=== PATIENT | female | born 1955 | race American Indian/Alaskan Native ===

== ENCOUNTER 2019-05-18 06:40 | Day surgery (SDC) | payer BC ==
[2019-05-18 07:33] LABS: Basophils # (Auto) 0.1 K/mm3 (0.0-0.1); Basophils % (Auto) 1.2 % (0.0-1.8); Eosinophils # (Auto) 0.1 K/mm3 (0.0-0.4); Eosinophils % (Auto) 1.4 % (0.0-4.3); Hematocrit 36.3 % (30.3-42.9); Lymphocytes # (Auto) 1.3 K/mm3 (1.2-5.4); Lymphocytes % (Auto) 30.6 % (13.4-35.0); Mean Corpuscular HGB Conc 33 % (30-34); Mean Corpuscular Volume 94 fl (79-97); Monocytes # (Auto) 0.4 K/mm3 (0.0-0.8); Monocytes % (Auto) 9.7 % (0.0-7.3); Platelet Count 175 K/mm3 (140-440); Red Blood Count 3.87 M/mm3 (3.65-5.03); Red Cell Distribution Width 14.4 % (13.2-15.2)
[2019-05-18 07:41] LABS: INR 0.91 (0.87-1.13)
[2019-05-18 07:42] LABS: Partial Thromboplastin Time 27.1 Sec. (24.2-36.6)
[2019-05-18 07:46] LABS: BUN/Creatinine Ratio 16; Blood Urea Nitrogen 13 mg/dL (7-17); Calcium 9.1 mg/dL (8.4-10.2); Hemolysis Index 4
[2019-05-18] MEDS ORDERED: XYLOCAINE 2% INFILTRATI ONE (08:16)
[2019-05-18] MEDS ORDERED: HEPARIN/NS 5000 UNIT/500ML(CATH LAB) 1,000 ML IR ONE (08:16)
[2019-05-18] MEDS ORDERED: VERSED ONE (08:17)
[2019-05-18] MEDS ORDERED: SUBLIMAZE ONE (08:17)
[2019-05-18] MEDS: NACL 0.9% 500 ML 500 ML IV SCH ×2 (08:25→08:50)
[2019-05-18] MEDS ORDERED: HEPARIN 10,000 UNITS/10 ML ONE (08:50)
--- NOTE | 2019-05-18 10:22 | Short Stay Summary ---
Short Stay Documentation Date of service: 05/18/19 Narrative H&P: See H&P - History H&P: obtained from office - Allergies and Medications Current Medications: Allergies Penicillins Allergy (Verified 11/18/14 10:34) Rash Home Medications Medication Instructions Recorded Confirmed Last Taken Type Valacyclovir HCl [valACYclovir] 500 mg PO DAILY 11/19/14 05/18/19 05/17/19 History predniSONE [Prednisone] 5 mg PO DAILY 11/19/14 05/18/19 05/18/19 History Bisoprolol/Hydrochlorothiazide 1 tab PO QDAY 01/15/16 01/16/16 05/17/19 History [Bisoprolol-Hctz 5-6.25 mg Tab] Rivaroxaban [Xarelto] 20 mg PO QDAY 01/15/16 05/18/19 05/16/19 History Betaxolol HCl [Betoptic S 0.25% 1 drop OU DAILY 05/18/19 05/18/19 05/17/19 History SUSP] Folic Acid [Folvite] 1 mg PO DAILY 05/18/19 05/18/19 05/17/19 History Pravastatin [Pravachol] 40 mg PO QHS 05/18/19 05/18/19 05/17/19 History metHOTREXate(DOSE WEEKLY ONLY) 2.5 mg PO QWEEK 05/18/19 05/18/19 05/17/19 History [metHOTREXate (DOSE WEEKLY ONLY)] Active Medications Sodium Chloride (Nacl 0.9% 500 Ml) 500 mls @ 50 mls/hr IV DIRECT JACOB Last Admin: 05/18/19 08:50 Dose: 50 mls/hr Documented by: Rivaroxaban (Xarelto) 20 mg PO ONCE ONE; Protocol Stop: 05/18/19 10:15 - Brief post op/procedure progress note Date of procedure: 05/18/19 Pre-op diagnosis: R/O Mesenteric Ischemia Post-op diagnosis: same Procedure: 1. Ultrasound-Guided Access Right Common Femoral Artery 2. Diagnostic Abdominal Aortogram (No Previous Films a Comparison) 3. Selective Catheterization of Celiac Artery 4. Selective Catheterization of Superior Mesenteric Artery 5. Intravascular Ultrasound of Superior Mesenteric Artery 6. Radiologic Supervision and Interpretation Anesthesia: local, other (IV sedation) Surgeon: DEN TYLER Estimated blood loss: minimal Pathology: none Condition: stable - Disposition Condition at discharge: Good Disposition: DC-01 TO HOME OR SELFCARE Short Stay Discharge Plan Activity: other (No heavy lifting or strenuous activity for 24 hours) Wound: remove dressing (24 hours) Follow up with: DEN TYLER MD [Staff Physician] - 14 Days Prescriptions: HYDROcodone/APAP 7.5-325 [[place] 7.5/325] 1 each PO Q6HR PRN #20 tablet PRN Reason: Pain
[2019-05-18] MEDS ORDERED: NORCO 5/325 PO PRN (10:24)
--- NOTE | 2019-05-18 10:29 | Operative Report ---
Operative Report Operative Report: Date of Procedure: 05/18/2019 Pre-operative Diagnosis: Rule Out Mesenteric Ischemia Post-operative Diagnosis: Same Procedure(s): 1. Ultrasound-Guided Access Right Common Femoral Artery 2. Diagnostic Abdominal Aortogram (No Previous Films a Comparison) 3. Selective Catheterization of Celiac Artery 4. Selective Catheterization of Superior Mesenteric Artery 5. Intravascular Ultrasound of Superior Mesenteric Artery 6. Closure of Right Femoral Arteriotomy with ProGlide Closure Device 7. Radiologic Supervision and Interpretation Surgeon: Keanu Clements M.D. Magazine Hand: None Anesthesia: Local and IV Sedation EBL: Minimal Counts: Correct Complications: None Condition: Stable Specimen: None Indication: The patient is a 63-year-old female with a history of several months of abdominal discomfort and frequent diarrhea after every meal. 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 She is in need of a diagnostic a ngiogram of her mesenteric vessels to rule out possible stenosis. She was given the risks, benefits, and alternative procedures and consented to the procedure. Angiographic Findings: The diagnostic aortogram performed in the lateral view revealed no evidence of flow limiting stenosis within the celiac artery or superior mesenteric artery. Selective catheterization of the celiac artery and the lateral view revealed no evidence of flow limiting stenosis in the lateral view. Selective catheterization of the superior mesenteric artery showed no evidence of flow limiting stenosis in the lateral view. Diagnostic aortogram in the AP view revealed no evidence of flow limiting stenosis in the celiac artery or superior mesenteric artery. Selective catheterization of the superior mesenteric artery in the AP view revealed no evidence of significant flow limiting stenosis. Selective catheterization of the celiac artery and the AP view revealed proximal 40% stenosis however this did not appear to be flow limiting. Intravascular ultrasound of the superior mesenteric artery revealed no evidence of significant stenosis. Description of Procedure: The patient was brought to the rn lab and laid in supine position. After she was adequately sedated her right groin was prepped and draped in normal sterile fashion. Ultrasound was used to identify the right common femoral artery and co nfirm patency. Once patency was confirmed the overlying skin and soft tissue was anesthetized with lidocaine. An 11 blade was used to make a small stab incision and a hemostat was used to bluntly dissect down to the anterior surface of the artery under ultrasound guidance. Micropuncture technique was used with ultrasound guidance into the anterior surface of the artery and a 0.018 wire was then advanced into the external iliac artery. The micropuncture needle was removed and the micropuncture sheath was advanced. The wire and dilator were removed and a 0.035 Bentson wire was advanced to the aorta. The micropuncture sheath was exchanged for 5 [place] sheath and then an Omni flush catheter was advanced into the aorta. The C-arm was then positioned in lateral view and an aortogram was performed revealing no angiographic evidence of flow-limiting stenosis in either the celiac or superior mesenteric artery. The Bentson wire was used to cannulate the superior mesenteric artery and a catheter was advanced to the artery and a selective angiogram of SMA was performed revealing no evidence of flow-limiting stenosis. The Bentson wire was reinserted and the Omni Flush catheter and reservoir were used to cannulate the celiac artery. The Omni Flush catheter was exchanged for a vertebral catheter which was advanced into the celiac artery and a selective angiogram of the celiac artery was performed in the lateral view revealing no evidence of flow-limiting stenosis. The C-arm was then adjusted to an AP view and a aortogram was performed through the Omni Flush catheter revealing no evidence of flow-limiting stenosis. The Bentson wire and Omni Flush catheter was used to select the celiac artery and the vertebral catheter was advanced and this did reveal possibly 40% stenosis in the AP view however this was not flow-limiting. The Omni Flush catheter was reinserted and the Bentson wire was used to cannulate the SMA and a selective angiogram of the SMA and the AP view revealed no evidence of flow-limiting stenosis. Because the patient has such significant symptoms and ultrasound evidence of stenosis I felt that she would benefit from an intravascular ultrasound. I exchanged the Bentson wire for a 0.014 [place] wire and then using a rapid exchange [employer] IVUS catheter to perform intravascular ultrasound of the SMA revealing no evidence of diameter reducing stenosis. At this point I removed the IVUS catheter and Spartacore wire reinserted the Bentson wire. I then used the ProGlide closure device to close the right femoral arteriotomy. The patient tolerated the procedure well. All sponge, needle, instrument counts were correct. The patient was transported to the recovery area in stable condition.
[2019-05-18] MEDS ORDERED: XARELTO PO ONE (11:00)
[2019-05-18 11:03] VITALS: BP 119/61
== END 2019-05-18 11:40 | disposition home or self-care (01) ==
LOC: CATHLABREC 06:40
PROVIDERS: ATTEND Surgery Vascular Surgery
DX: K55.1 Chronic vascular disorders of intestine (principal); M35.00 Sjogren syndrome, unspecified; D72.829 Elevated white blood cell count, unspecified; J18.9 Pneumonia, unspecified organism; H40.9 Unspecified glaucoma; E78.00 Pure hypercholesterolemia, unspecified; I10 Essential (primary) hypertension; M19.90 Unspecified osteoarthritis, unspecified site; Z98.890 Other specified postprocedural states; Z88.0 Allergy status to penicillin; Z79.899 Other long term (current) drug therapy; Z86.718 Personal history of other venous thrombosis and embolism; Z98.51 Tubal ligation status; Z80.8 Family history of malignant neoplasm of other organs or systems
CPT/HCPCS: 36245; 36415; 37252; 75726; 76937; 80048; 85025; 85610; 85730; C1753; C1760; C1769; C1887; J1644; J2250; J3010; J7040; 36246; Q9967

== ENCOUNTER 2020-04-18 07:24 | Day surgery (SDC) | payer BC, MEDICARE ==
[2020-04-18] MEDS ORDERED: SODIUM CHLORIDE 0.9% 500 ML 500 ML IV SCH (08:00)
[2020-04-18] MEDS ORDERED: HEPARIN 10,000 UNITS/10 ML VIAL ONE (08:03)
[2020-04-18] MEDS ORDERED: HEPARIN/NS 5000 UNIT/500ML 500 ML IR ONE ×3 (08:03→13:27)
[2020-04-18] MEDS ORDERED: LIDOCAINE 1%/EPINEPHRINE 1:100,000 VIAL (20 ML) INFILTRATI ONE ×2 (08:03→11:34)
[2020-04-18] MEDS ORDERED: MIDAZOLAM 2 MG/2 ML INJ ONE (08:03)
[2020-04-18] MEDS ORDERED: fentaNYL 100 MCG/2 ML INJ ONE (08:04)
[2020-04-18 08:41] LABS: Basophils % (Auto) 0.7 % (0.0-1.8); Eosinophils % (Auto) 0.5 % (0.0-4.3); Hematocrit 33.3 % (30.3-42.9); Hemoglobin 11.2 gm/dl (10.1-14.3); Lymphocytes % (Auto) 20.2 % (13.4-35.0); Mean Corpuscular HGB Conc 34 % (30-34); Mean Corpuscular Volume 97 fl (79-97); Monocytes # (Auto) 0.3 K/mm3 (0.0-0.8); Monocytes % (Auto) 6.7 % (0.0-7.3); Platelet Count 359 K/mm3 (140-440); Red Blood Count 3.42 M/mm3 (3.65-5.03); Red Cell Distribution Width 14.8 % (13.2-15.2)
[2020-04-18 08:56] LABS: INR 0.96 (0.87-1.13)
[2020-04-18 08:57] LABS: Partial Thromboplastin Time 36.5 Sec. (24.2-36.6)
[2020-04-18 09:04] LABS: BUN/Creatinine Ratio 20; Blood Urea Nitrogen 20 mg/dL (7-17); Calcium 9.8 mg/dL (8.4-10.2); Hemolysis Index 22
[2020-04-18] MEDS ORDERED: HEPARIN/NS 5000 UNIT/500ML 1,000 ML IR ONE (11:33)
[2020-04-18] MEDS: MIDAZOLAM 2 MG/2 ML INJ ONE ×3 (12:00→13:30)
[2020-04-18] MEDS: fentaNYL 100 MCG/2 ML INJ ONE ×3 (12:00→13:30)
[2020-04-18] MEDS ORDERED: WATER FOR INJ Sterile (PF) 10 ML ONE (12:16)
[2020-04-18] MEDS ORDERED: ALTEPLASE 2 MG INJ ONE (12:16)
[2020-04-18] MEDS ORDERED: SODIUM CHLORIDE 0.9% 100 ML ONE (12:18)
[2020-04-18] MEDS: HEPARIN 10,000 UNITS/10 ML VIAL ONE ×2 (12:22→13:02)
--- NOTE | 2020-04-18 13:47 | Short Stay Summary ---
Short Stay Documentation Date of service: 04/18/20 Narrative H&P: See H&P - History H&P: obtained from office - Allergies and Medications Current Medications: Allergies Penicillins Allergy (Verified 11/18/14 10:34) Rash Home Medications Medication Instructions Recorded Confirmed Last Taken Type predniSONE [Prednisone] 5 mg PO DAILY 11/19/14 04/18/20 04/17/20 History Bisoprolol/Hydrochlorothiazide 1 tab PO QDAY 01/15/16 04/18/20 04/17/20 History [Bisoprolol-Hctz 5-6.25 mg Tab] Betaxolol HCl [Betoptic S 0.25% 1 drop OU DAILY 05/18/19 04/18/20 04/17/20 History SUSP] Folic Acid [Folvite] 1 mg PO DAILY 05/18/19 04/18/20 04/17/20 History HYDROcodone/APAP 7.5-325 [[place] 1 each PO Q6HR PRN #20 tablet 05/18/19 04/18/20 Unknown Rx 7.5/325] Enoxaparin [Lovenox] 80 mg SUB-Q DAILY 04/18/20 04/18/20 04/17/20 History Active Medications Sodium Chloride (Nacl 0.9% 500 Ml) 500 mls @ 50 mls/hr IV DIRECT JACOB Last Admin: 04/18/20 09:00 Dose: 50 mls/hr Documented by: - Brief post op/procedure progress note Date of procedure: 04/18/20 Pre-op diagnosis: Acute Left Lower Extremity DVT Post-op diagnosis: same Procedure: 1. Ultrasound-Guided Access Left Popliteal Vein 2. Diagnostic Left Lower Extremity Venogram 3. Diagnostic Central Venogram 4. Diagnostic Right Lower Extremity Venogram 5. Percutaneous Pharmacomechanical Thrombectomy Of Left Popliteal Vein with 20 Milligrams of TPA and Zelante AngioJet Catheter and Yard Hostler Device 6. Percutaneous Pharmacomechanical Thrombectomy Of Left Femoral Vein with 20 Milligrams of TPA and Zelante AngioJet Catheter and Yard Hostler Device 7. Percutaneous Pharmacomechanical Thrombectomy Of Left External Iliac vein with 20 Milligrams of TPA and Zelante AngioJet Catheter and Yard Hostler Device 8. Percutaneous Pharmacomechanical Thrombectomy Of Left Common Iliac vein with 20 Milligrams of TPA and Zelante AngioJet Catheter and Yard Hostler Device 9. Angioplasty Left Popliteal Vein And Superficial Femoral Vein With 10 x 40 [place] Balloon 10. Angioplasty and Stent of Left Common Iliac Vein with 16 x 120 Venovo Stent and 16 x 40 [place] Balloon 11. Angioplasty and Stent of Left Common Femoral Vein with 14 x 80 Venovo Stent and 14 x 40 [place] Balloon 12. Radiologic Supervision with Interpretation Anesthesia: local, other (Moderate Moderate Sedation) Surgeon: DEN TYLER Estimated blood loss: minimal Pathology: none Condition: stable - Disposition Condition at discharge: Good Disposition: DC-01 TO HOME OR SELFCARE Short Stay Discharge Plan Activity: other (No strenuous activity for 24 hours./) Wound: remove dressing (Remove the pressure dressing in 4 hours.), other (Okay to shower and wash the wound with soap and water but do not soak in water for 1 week.) Follow up with: DEN TYLER MD [Staff Physician] - 7 Days Prescriptions: oxyCODONE /ACETAMINOPHEN [Percocet 5/325] 1 tab PO Q6HR PRN #30 tablet PRN Reason: Pain Tizanidine HCl [Zanaflex 2mg CAP] 2 mg PO Q8H PRN #30 capsule PRN Reason: Spasms
[2020-04-18] MEDS ORDERED: oxyCODONE /ACETAMINOPHEN 5-325MG TAB PO PRN (13:58)
--- NOTE | 2020-04-18 13:58 | Operative Report ---
Operative Report Operative Report: Date of Procedure: 04/18/2020 Pre-operative Diagnosis: History of Left Lower Extremity DVT with Acute Left Low er Extremity DVT Post-operative Diagnosis: Same Procedure(s): 1. Ultrasound-Guided Access Left Popliteal Vein 2. Diagnostic Left Lower Extremity Venogram 3. Diagnostic Central Venogram 4. Diagnostic Right Lower Extremity Venogram 5. Percutaneous Pharmacomechanical Thrombectomy Of Left Popliteal Vein with 20 Milligrams of TPA and Zelante AngioJet Catheter and Machine Heel Builder Device 6. Percutaneous Pharmacomechanical Thrombectomy Of Left Femoral Vein with 20 Milligrams of TPA and Zelante AngioJet Catheter and Machine Heel Builder Device 7. Percutaneous Pharmacomechanical Thrombectomy Of Left External Iliac vein with 20 Milligrams of TPA and Zelante AngioJet Catheter and Machine Heel Builder Device 8. Percutaneous Pharmacomechanical Thrombectomy Of Left Common Iliac vein with 20 Milligrams of TPA and Zelante AngioJet Catheter and Machine Heel Builder Device 9. Angioplasty Left Popliteal Vein And Superficial Femoral Vein With 10 x 40 [place] Balloon 10. Angioplasty and Stent of Left Common Iliac Vein with 16 x 120 Venovo Stent and 16 x 40 [place] Balloon 11. Angioplasty and Stent of Left Common Femoral Vein with 14 x 80 Venovo Stent and 14 x 40 [place] Balloon 12. Radiologic Supervision with Interpretation Surgeon: Keanu Clements M.D. Region Manager: None Anesthesia: 1% Lidocaine/Monitored Moderate Sedation Total Anesthesia Time: 96 Minutes EBL: Minimal Counts: Correct Complications: None Condition: Stable Specimen: None Indication: The patient is a 64-year-old female with a history of DVT and maternal disease who was on Xarelto who presented to an outside hospital with complaints of left leg pain and swelling. She was diagnosed with an acute deep venous thrombosis of the left lower extremity involving tibial vessels as well as her popliteal vein and femoral veins. In addition to that she had previous stents placed for May-Thurner Syndrome which were also found to be occluded. It is likely that given an underlying gastrointestinal disorder she was not absorbing her Xarelto which led to her thrombosis. She has been converted to Lovenox for her anticoagulation however she continues to have symptoms of pain and swelling and is in need of a diagnostic venogram with possible intervention to relieve her symptoms. She was given the risk, benefits, and alternative procedures and consented to the procedure. Angiographic Findings: The diagnostic left lower extremity venogram revealed thrombus extending from the distal popliteal vein through the femoral vein and into the common femoral vein. The profunda vein and great saphenous vein were not identified and were likely chronically occluded. There were stents that had previously been placed in the left iliac veins and the stents had migrated distally and were now disconnected. The stents were occluded and the proximal stent was no longer at the origin of the common iliac vein causing the patient to have venographic evidence of recurrent May Thurner syndrome with near total occlusion of the proximal left common iliac vein. The right lower extremity venogram revealed that the right common femoral vein, external iliac vein, and common iliac vein were patent without any evidence of flow-limiting stenosis. The inferior vena cava was patent without evidence of thrombus or flow-limiting stenosis as well as the previously placed inferior vena cava filter. After intervention the popliteal vein and femoral vein were patent with less than 20% residual stenosis. There was residual thrombus within the femoral vein causing less than 20% occlusion of the lumen. The common femoral vein was patent with less than 15% residual stenosis. The external iliac vein was patent with less than 20% residual stenosis. The common iliac vein was patent with less than 15% residual stenosis. Description of Procedure: The patient was brought to the [facility] and laid in prone position. After a timeout was performed her left popliteal fossa was prepped and draped in normal sterile fashion. Ultrasound was used to identify the popliteal vein and the overlying skin and soft tissue was anesthetized with lidocaine. An 18-gauge access needle was used with ultrasound guidance into the popliteal vein and a 0.035 Bentson wire was advanced into the vein under fluoroscopy. The needle was removed and a 5 [place] sheath was placed by Seldinger technique. A Navicross catheter was advanced over the wire and the wire and catheter were advanced into the inferior vena cava which was confirmed by venography. The catheter was then removed leaving the wire in place and a diagnostic left lower extremity venogram was performed through the sheath with the previously described findings. I then used a Love 1 catheter to advance up and over the bifurcation and advanced the catheter into the right common femoral vein and performed a right lower extremity venogram with the previously described findings. I pulled the catheter back into the inferior vena cava and performed an inferior venacavogram with the previously described findings. I readvanced the Bentson wire into the proximal inferior vena cava and then upsized my sheath to a 10 [place] sheath. I then used the Zelante AngioJet Catheter with 20 mg of TPA mixed in 100 mL of saline to pulse spray and laced the thrombus within the popliteal vein, femoral vein, external iliac vein, and common iliac vein. Prior to doing this I did systemically heparinized the patient with 5000 units of heparin IV. I allowed this to dwell for 25 minutes and then reinserted the catheter and perform percutaneous mechanical thrombectomy with the Zelante AngioJet Catheter. After performing thrombectomy there I noted stenosis within the popliteal vein and femoral vein of approximately 60% so I used a 10 x 40 [place] balloon to perform angioplasty of the popliteal vein and superficial femoral vein with a result of less than 20% residual stenosis. There was thrombus lining the veins so I used a Machine Heel Builder Device to grind the thrombus off of the wall of the veins including within the stents in the external iliac vein and common iliac vein. I reinserted the Zelante AngioJet Catheter and was able to aspirate the thrombus. I then reinserted the Love 1 catheter and we advanced this over the bifurcation and performed a venogram to yari the bifurcation. I deployed a 16 x 120 Venovo Stent that extended down into the distal external iliac vein. I followed this with a 14 x 80 Venovo Stent that extended down into the distal common femoral vein. I postdilated the stents within the external iliac vein and common femoral vein with a 14 x 40 [place] Balloon in the stented portion within the common iliac vein With a 16 x 40 [place] Balloon. This resulted in less than 15% residual stenosis within the common iliac vein, less than 20% residual stenosis in the external iliac vein and less than 15% residual stenosis within the common femoral vein. There was evidence of some residual thrombus within the proximal superficial femoral vein however this was not flow-limiting and only occluded lumen by approximately 20%. At this point I removed all balloons and wires and removed by sheath and manual pressure was held to achieve hemostasis. Once hemostasis was achieved a pressure dressing was applied and the patient was transported to the recovery area in stable condition.
[2020-04-18] MEDS ORDERED: KETOROLAC 30 MG/1 ML INJ IV ONE (13:59)
[2020-04-18] MEDS ORDERED: SODIUM CHLORIDE 0.9% 1000 ML 1,000 ML IV ONE (14:00)
[2020-04-18] MEDS ORDERED: KETOROLAC 30 MG/1 ML INJ ONE (14:41)
[2020-04-18 15:54] VITALS: BP 118/62
== END 2020-04-18 15:50 | disposition home or self-care (01) ==
LOC: CATHLABREC 07:24
PROVIDERS: ATTEND Surgery Vascular Surgery
DX: I82.492 Acute embolism and thrombosis of other specified deep vein of left lower extremity (principal); M35.00 Sjogren syndrome, unspecified; R73.9 Hyperglycemia, unspecified; H40.9 Unspecified glaucoma; E78.00 Pure hypercholesterolemia, unspecified; M19.90 Unspecified osteoarthritis, unspecified site; I10 Essential (primary) hypertension; Z98.51 Tubal ligation status; Z98.890 Other specified postprocedural states; Z88.0 Allergy status to penicillin; Z79.899 Other long term (current) drug therapy; Z80.8 Family history of malignant neoplasm of other organs or systems
CPT/HCPCS: 36415; 37187; 37238; 37239; 75822; 80048; 85025; 85610; 85730; 96374; 99156; 99157; C1725; C1757; C1769; C1876; C1887; C1894; J1644; J1885; J2250; J2997; J3010; J7030; J7040; 37249; Q9967

== ENCOUNTER 2022-06-27 18:37 | Emergency (ER) | payer BC ==
[2022-06-27 19:52] VITALS: BP 131/65
== END 2022-06-27 21:00 | disposition left against medical advice (07) ==
LOC: ED 18:37
DX: M79.89 Other specified soft tissue disorders (principal); Z53.21 Procedure and treatment not carried out due to patient leaving prior to being seen by health care provider